=== PATIENT | female | born 2000 | race Two or more races ===

== ENCOUNTER 2025-02-04 20:08 | Emergency (ER) | payer MEDICAID ==
[~2025-02-04] VITALS: Ht 160 cm; Wt 69.4 kg
[2025-02-04 20:10] VITALS: BP 112/76; PULSE 98; RESP 18; TEMP 98.3
--- NOTE | 2025-02-04 20:15 | ED.PDOC ---
History of Present Illness(SKN HPI Comments 24-year-old female presents to the ED chief complaint left great toe injury. Patient states he was injured by stubbing it against some boot she notes toenail is falling off. Rates pain 8/10 on pain scale pressure type pain and throbbing nonradiating. 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 History: No Pertinent HAND FILER BALANCE WHEEL History Family History Family History: Unknown Social History Smoker: Non-Smoker Alcohol: Denies ETOH Use Drugs: Denies Drug Use All Other Systems: Reviewed and Negative Physical Exam General Appearance: No Apparent Distress, Normal HEENT: Pharynx Normal Neck: Full Range of Motion, Non-Tender Respiratory: Lungs Clear, No Respiratory Distress, Normal Breath Sounds Cardiovascular: No Murmur, Normal Peripheral Pulses, Regular Rate/Rhythm Breast Exam: Deferred Gastrointestinal: Non Tender, Soft Genitalia: Deferred Pelvic: Deferred Rectal: Deferred Extremities: Normal capillary refill, Normal range of motion, No pedal edema Musculoskeletal : Apperance: Normal Neurologic: Alert, No Motor Deficits, Normal Affect, Normal Mood, No Sensory Deficits Cerebellar Function: Normal Reflexes: NOT DONE Skin: Dry, Normal Color, Warm, Other (Left 1st digit nail partially removed no noted bleeding or drainage moderate tenderness palpated over anterior and posterior toe with trace ecchymosis strength sensory motion intact.) Lymphatic: No Adenopathy Was a procedure done? Was a procedure done?: Yes Sedation Sedation?: No Informed consent obtained: Yes Nail Removal Nail Removal Location: 1st Toe nail Nail Removal preparation: Saline, by Irrigation Nail Removal Anesthetic: Lidocaine, Digital nerve block Wound Complexity: Full Informed Consent: Yes Risks/Benefits/alt. described: Yes Notes Full nail removed patient tolerated well minimal blood loss or pain. Differential Diagnosis (INTG) Differential Diagnosis: Cellulitis, Contusion, Fracture, Hematoma, Puncture W ound Differential Diagnosis: Abscess X-Ray, Labs, Meds, VS Vital Signs Date Time Temp Pulse Resp B/P (MAP) Pulse Ox O2 Delivery O2 Flow Rate FiO2 02/04/25 20:10 98.3 98 18 112/76 98.3 Current Medications Medications (Trade) Dose Ordered Sig/Loan Route Start Time Stop Time Status Last Admin Ketorolac Tromethamine (Toradol Injection) 60 mg ONCE ONCE IM 02/04/25 21:00 02/04/25 21:01 DC 02/04/25 21:09 X-Ray, Labs, Meds, VS Comment X-ray of foot shows no acute fractures dislocations, osseous lesions or subluxations. See procedure note. Post wound care provided. We will provided for work. Follow up with your PCP in 2-3 days as necessary ER return precautions given patient indicates understanding agrees with discharge plan of care Time of 1ST Reevaluation: 20:13 Reevaluation 1ST: Unchanged Time of 2ND Reevaluation: 21:59 Reevaluation 2ND: Improved Patient Education/Counseling: Diagnosis, Treatment, Prognosis, Need For Follow Up Family Education/Counseling: No Family Present SEPSIS Sepsis Screen Physician Orders L Foot 3 View Xray (02/04/25 20:51) [place] (02/04/25 ) Vital Signs Date Time Temp Pulse Resp B/P (MAP) Pulse Ox O2 Delivery O2 Flow Rate FiO2 02/04/25 20:10 98.3 98 18 112/76 98.3 Medications Medications Dose Ordered Sig/Loan Route Start Time Stop Time Status Last Admin Dose Admin Ketorolac Tromethamine 60 mg ONCE ONCE IM 02/04/25 21:00 02/04/25 21:01 DC 02/04/25 21:09 Departure 1 Departure Time of Disposition: 21:56 Impression: Primary Impression: Nail avulsion of toe Qualified Codes: S91.209A - Unspecified open wound of unspecified toe(s) with damage to nail, initial encounter Disposition: HOME / SELF CARE / HOMELESS Condition: Stable Discharged With: Self Critical Care Note Critical Care Time?: No Stability Stability form required: SANTIAGO Tom Feb 04, 2025 20:15
[2025-02-04] MEDS: LIDOCAINE 1% HCL (LOCAL ANESTH.) INJ 20ML MDV ID ONE (21:08)
[2025-02-04] MEDS: KETOROLAC TROMETH 60MG/2ML VIAL IM ONE (21:09)
[2025-02-04] MEDS: ONDANSETRON ODT 4 MG TAB PO ONE (21:30)
--- NOTE | 2025-02-04 21:32 | DVH ---
CLINICAL INDICATION: left 1st toe injury TECHNIQUE: 3 radiographic views of the left foot were obtained. Comparison: None FINDINGS/IMPRESSION: Normal bony alignment. No fractures or dislocations No radiopaque foreign bodies.
== END 2025-02-04 22:25 | disposition home or self-care (01) ==
LOC: ER 20:08
DX: S91.202A Unspecified open wound of left great toe with damage to nail, initial encounter (principal); X58.XXXA Exposure to other specified factors, initial encounter; Y93.89 Activity, other specified; Y92.89 Other specified places as the place of occurrence of the external cause; Y99.8 Other external cause status
CPT/HCPCS: 11730; 73630; 96372; 99284; J1885; J2003